=== PATIENT | male | born 1995 | race Caucasian/White ===

== ENCOUNTER 2020-08-12 00:51 | Emergency (ER) | payer OTHER ==
[~2020-08-12] VITALS: Ht 175.3 cm; Wt 75.0 kg
[2020-08-12 00:52] VITALS: BP 149/101
--- NOTE | 2020-08-12 01:03 | NUR ---
Police say he was arrested 07-19-2020, no idea if he was tested then or not. Pt states he was. Even so. This was 24 days ago.
--- NOTE | 2020-08-12 01:05 | NUR ---
the above note was done by kianna decker.
== END 2020-08-12 01:27 ==
LOC: ER 00:52
DX: I10 Essential (primary) hypertension (principal)
CPT/HCPCS: 99283